=== PATIENT | female | born 1965 | race African-American/Black ===

== ENCOUNTER 2021-05-02 12:46 | Outpatient (CLI) | payer OTHER ==
[~2021-05-02] VITALS: Ht 167.6 cm; Wt 63.5 kg
== END 2021-05-02 19:12 | disposition home or self-care (01) ==
LOC: INF 12:46
PROVIDERS: ATTEND Family Medicine
DX: Z23 Encounter for immunization (principal); U07.1 COVID-19
CPT/HCPCS: 96365; M0244